=== PATIENT | female | born 1965 | race Caucasian/White ===

== ENCOUNTER 2019-03-15 13:04 | Emergency (ER) | payer MEDICAID ==
[2019-03-15] MEDS ORDERED: IPRATROPIUM/ALBUTEROL (0.5MG/3MG) NEB INH ONE (13:10)
[2019-03-15] MEDS ORDERED: METHYLPREDNISOLONE PF 125MG/VIAL IM ONE (13:10)
[2019-03-15] MEDS ORDERED: AZITHROMYCIN 500 MG TABLET PO ONE (13:14)
[2019-03-15] MEDS ORDERED: CEFTRIAXONE 1GM/50ML BAG 1 GM/50 ML BAG IVPB ONE (13:14)
--- NOTE | 2019-03-15 13:15 | Emergency Department Record ---
History of Present Illness - General Chief Complaint: Shortness of breath Stated Complaint: MONIKA Time Seen by Provider: 03/15/19 13:06 Source: Patient Mode of Arrival: Ambulatory Limitations: No limitations - History of Present Illness Initial Comments: 53 yo female presents with a cough for 4-5 days. The cough is getting worse with green sputum. She has "borderline" COPD per her doctor. She denies fevers. She does feel short of breath. No chest pain. No edema. No fever. No nausea, vomiting or diarrhea. She is a smoker. She has had pneumonia in the past as well. MD Complaint: Cough -: Days(s) (4-5) Quality: Other Improves With: Nothing Worsens With: Coughing Known History Of: COPD Context: Other Associated Symptoms: Cough, Sputum production Treatments Prior to Arrival: Bronchodilator - Related Data Home Medications Medication Instructions Recorded Confirmed Last Taken Aripiprazole [Abilify] 10 mg PO DAILY 03/15/19 03/15/19 Unknown Gabapentin [Neurontin] 1,800 mg PO TID 03/15/19 03/15/19 Unknown Venlafaxine HCl [Effexor] 75 mg PO DAILY 03/15/19 03/15/19 Unknown Previous Rx's Medication Instructions Recorded Albuterol Sulfate [Albuterol 8.5 gm IH Q4H #1 hfa.aer.ad 03/15/19 Sulfate Hfa] Azithromycin [Zithromax] 250 mg PO DAILY #4 tab 03/15/19 Benzonatate [Tessalon] 1 cap PO Q8H PRN #20 cap 03/15/19 Prednisone [Prednisone 20Mg] 20 mg PO BID #14 tab 03/15/19 Allergies Allergy/AdvReac Type Severity Reaction Status Date / Time No Known Drug Allergies Allergy Verified 03/15/19 13:14 Review of Systems Constitutional: Denies: Chills, Fever, Malaise, Weakness Eyes: Denies: Eye discharge, Eye pain, Photophobia, Vision change ENT: Reports: Congestion. Denies: Throat pain Respiratory: Reports: Cough, Dyspnea, Wheezes. Denies: Hemoptysis Cardiovascular: Denies: Chest pain, Edema, Palpitations, Syncope Endocrine: Denies: Fatigue Gastrointestinal: Denies: Abdominal pain, Diarrhea, Nausea, Vomiting Genitourinary: Denies: Dysuria, Urgency Musculoskeletal: Denies: Arthralgia, Back pain, Myalgia, Neck pain Skin: Denies: Bruising, Change in color, Rash Neurological: Denies: Headache Psychiatric: Denies: Anxiety Hematological/Lymphatic: Denies: Easy bleeding, Easy bruising Physical Exam - General General Appearance: Alert, Oriented x3, Cooperative, No acute distress, Other (Frequent cough) Limitations: No limitations - Head Head exam: Atraumatic, Normal inspection - Eye Eye exam: Normal appearance. negative: Conjunctival injection, Scleral icterus - ENT ENT exam: Normal exam, Mucous membranes moist Ear exam: Normal external inspection Nasal Exam: Normal inspection Mouth exam: Normal external inspection Teeth exam: Normal inspection Throat exam: Normal inspection - Neck Neck exam: Normal inspection, Full ROM. negative: Lymphadenopathy, Tenderness - Respiratory Respiratory exam: Decreased breath sounds, Prolonged expiratory, Rhonchi, Wheezes. negative: Normal lung sounds bilaterally - Cardiovascular Cardiovascular Exam: Regular rate, Normal rhythm, Normal heart sounds - GI/Abdominal GI/Abdominal exam: Soft. negative: Tenderness - Rectal Rectal exam: Deferred - exam: Deferred - Extremities Extremities exam: Normal inspection. negative: Pedal edema, Tenderness - Back Back exam: Denies: CVA tenderness (R), CVA tenderness (L) - Neurological Neurological exam: Alert, Oriented X3 - Psychiatric Psychiatric exam: Normal affect, Normal mood - Skin Skin exam: Dry, Intact, Normal color, Warm Course - Reevaluation(s) Reevaluation #1: 96% on room air. Cough frequently but non labored. 03/15/19 13:14 03/15/19 13:57 The labs were reviewed No significant abnormalities on the CBC or BMP The patient is subjectively much improved On examination she is still wheezing but with improved air exchange. 03/15/19 14:38 The CXR was negative for acute cardiopulmonary process He wheezing and cough have improved. After the albuterol she continues to feel improved with normal work of breathing and no conversation dyspnea. 03/15/19 14:59 HR 82, 96% still on RA. Normal work of breathing. Mild diffuse wheeze. 03/15/19 15:37 She continues to improve Minimal residual wheeze The patient will be provided an inhaler with spacer with teaching with respiratory The other prescriptions (steroid, antibiotic, tessalon) were sent to her pharmacy The patient is doing well and is comfortable with DC. DC vitals were reviewed. We discussed at length reasons to immediately return to the ED as well as close follow up. The patient will call the PCP for close follow up of this ED visit to review this visit and the tests performed Medical Decision Making - Lab Data Result diagrams: 03/15/19 13:20 03/15/19 13:20 Disposition Disposition: Discharge Clinical Impression: COPD with exacerbation, Bronchitis Disposition: Home, Self-Care Condition: (1) Good Instructions: COPD (Chronic Obstructive Pulmonary Disease) (ED) Additional Instructions: Call your doctor for the next available follow up appointment Review this ER visit and the tests performed with your family doctor Return to the ER for a recheck if worse, any new concerns or questions Take the prescriptions provided as directed Use your inhaler 2 puffs every 4 hours Prescriptions: Albuterol Sulfate [Albuterol Sulfate Hfa] 8.5 gm IH Q4H #1 hfa.aer.ad Prednisone [Prednisone 20Mg] 20 mg PO BID #14 tab Benzonatate [Tessalon] 1 cap PO Q8H PRN #20 cap PRN Reason: Cough Azithromycin [Zithromax] 250 mg PO DAILY #4 tab Forms: Patient Portal Access Time of Disposition: 15:39 Quality - Quality Measures Quality Measures: N/A - Blood Pressure Screening Does Patient Have Any of the Following: No Blood Pressure Classification: Hypertensive Reading Systolic Measurement: 147 Diastolic Measurement: 109 Screening for High Blood Pressure: < Pre-Hypertensive BP, F/U Documented > [G8950] Pre-Hypertensive Follow-up Interventions: Referral to alternative/primary care provider.
[2019-03-15] MEDS ORDERED: ONDANSETRON HCL IV 4 MG/2 ML VIAL IVP ONE (13:18)
[2019-03-15 13:35] LABS: ABSOLUTE NEUTROPHIL COUNT 9.82; BASO % 0.4 % (0-6); GRAN % 76.4 % (47-80); HEMATOCRIT 47.7 % (35.0-47.0); HEMOGLOBIN 15.5 gm/dl (11.6-16.0); LYMPH % 13.9 % (16-45); MEAN CELL VOLUME 92.8 fl (81-97); MEAN CORPUSCULAR HEMOGLOBIN 30.2 pg (27-33); MEAN CORPUSCULAR HGB CONC 32.5 g/dl (32-36); MEAN PLATELET VOLUME 9.5 fl (7.4-10.4); MONO % 8.3 % (0-9); PLATELET COUNT 354 K/uL (130-400); RED BLOOD COUNT 5.14 M/uL (3.80-5.40); RED CELL DISTRIBUTION WIDTH 13.8 % (11.5-14.5); WHITE BLOOD COUNT W/O DIFF 12.9 K/uL (4.2-12.2)
[2019-03-15 13:48] LABS: BLOOD UREA NITROGEN 8 mg/dL (6-20); CREATININE 0.7 mg/dL (0.5-0.9); EST GLOMERULAR FILTRATION RATE > 60 mL/min
[2019-03-15 13:51] LABS: GLUCOSE,RANDOM 147 mg/dL (74-109)
[2019-03-15] MEDS ORDERED: ALBUTEROL (0.5% CONCENTRATED) 2.5 MG/0.5 ML VIAL.NEB INH ONE (14:00)
[2019-03-15] MEDS ORDERED: BENZONATATE 100 MG CAPSULE PO ONE (14:00)
[2019-03-15] MEDS ORDERED: POTASSIUM CHLORIDE 20 MEQ TABLET PO ONE (14:00)
[2019-03-15] MEDS ORDERED: ALBUTEROL HFA 8 GM INHALER INH ONE (15:36)
--- NOTE | 2019-03-16 07:44 | RADIOLOGY REPORT ---
EXAM: CHEST, TWO VIEWS HISTORY: CONGESTED, PRODUCTIVE COUGH. TECHNIQUE: PA and lateral views of the chest were obtained. Comparison: None. FINDINGS: The cardiomediastinal silhouette is normal in size. The pulmonary vasculature is not congested. No focal consolidation, pleural effusion, or pneumothorax is seen. IMPRESSION: NO ACUTE CARDIOPULMONARY PROCESS. JOB NUMBER: [id number] MTDD
== END 2019-03-15 16:13 | disposition home or self-care (01) ==
LOC: ER 13:04
DX: J44.1 Chronic obstructive pulmonary disease with (acute) exacerbation (principal); J20.9 Acute bronchitis, unspecified; J44.0 Chronic obstructive pulmonary disease with (acute) lower respiratory infection; F17.210 Nicotine dependence, cigarettes, uncomplicated
CPT/HCPCS: 99284 ×2; 96372; 96365; 85025; 80048; 71046; 94640 ×3; J0696; J2930

== ENCOUNTER 2019-03-16 20:52 | Observation (INO) | payer MEDICAID ==
[2019-03-16] MEDS ORDERED: IPRATROPIUM/ALBUTEROL (0.5MG/3MG) NEB INH ONE (21:03)
[2019-03-16] MEDS ORDERED: METHYLPREDNISOLONE PF 125MG/VIAL IM ONE (21:04)
--- NOTE | 2019-03-16 21:30 | Emergency Department Record ---
History of Present Illness - General Chief Complaint: Cough Stated Complaint: BRONCHITIS -RETURN VISIT Time Seen by Provider: 03/16/19 20:59 Source: Patient Mode of Arrival: Ambulatory Limitations: No limitations - History of Present Illness Initial Comments: Pt to ED with MONIKA and cough. Seen here yesterday and dx with Bronchitis. Had CXR and labs at that time. Pt on prednisone and zithromax. Not smoking today but around smokers and a bon fire. Using inhaler "too much". No fever. Sputum was green in color yesterday but today is white per patient. "I tried to go to bed but I couldn't breath". Onset/Timin -: Days(s) - Related Data Previous Rx's Medication Instructions Recorded Albuterol Sulfate [Albuterol 8.5 gm IH Q4H #1 hfa.aer.ad 03/15/19 Sulfate Hfa] Azithromycin [Zithromax] 250 mg PO DAILY #4 tab 03/15/19 Benzonatate [Tessalon] 1 cap PO Q8H PRN #20 cap 03/15/19 Prednisone [Prednisone 20Mg] 20 mg PO BID #14 tab 03/15/19 Allergies Allergy/AdvReac Type Severity Reaction Status Date / Time No Known Drug Allergies Allergy Verified 03/16/19 21:00 Travel Screening - Travel/Exposure Within Last 30 Days Have you traveled within the last 30 days?: No - Travel Symptoms Symptom Screening: None Review of Systems Constitutional: Denies: Chills, Fever, Weakness Eyes: Denies: Eye discharge, Photophobia ENT: Denies: Congestion, Dental pain, Epistaxis Respiratory: Reports: As per HPI, Cough, Dyspnea, Wheezes Cardiovascular: Denies: Arrhythmia, Chest pain, Syncope Endocrine: Denies: Fatigue Gastrointestinal: Denies: Abdominal pain, Diarrhea, Nausea, Vomiting Genitourinary: Denies: Abnormal menses Musculoskeletal: Denies: Arthralgia Neurological: Denies: Abnormal gait, Headache, Tremors Psychiatric: Reports: Anxiety. Denies: Suicidal thoughts Hematological/Lymphatic: Denies: Anemia Past Medical History - SOCIAL HISTORY Smoking Status: Current every day smoker - RESPIRATORY Hx Respiratory Disorders: Yes Hx COPD: Yes Hx Pneumonia: Yes - CARDIOVASCULAR Hx Cardio Disorders: No - NEURO Hx Neuro Disorders: Yes Hx Neuropathy: Yes - GI Hx GI Disorders: No - Hx Genitourinary Disorders: No - ENDOCRINE Hx Endocrine Disorders: No - MUSCULOSKELETAL Hx Musculoskeletal Disorders: Yes Hx Arthritis: Yes - PSYCH Hx Psych Problems: Yes Hx Depression: Yes - HEMATOLOGY/ONCOLOGY Hx Hematology/Oncology Disorders: No Family Medical History Any Significant Family History?: No Family Hx Comment (NOT TO BE USED IN PLACE OF ITEMS BELOW): denies Physical Exam - General General Appearance: Alert, Oriented x3, Cooperative, Moderate distress Limitations: No limitations - Head Head exam: Atraumatic - Eye Eye exam: PERRL, EOMI - ENT ENT exam: Mucous membranes moist, Normal external ear exam, Normal orophraynx Nasal Exam: Normal inspection - Neck Neck exam: Normal inspection, Full ROM. negative: Lymphadenopathy - Respiratory Respiratory exam: Prolonged expiratory, Respiratory distress, Wheezes. negative: Chest wall tenderness, Rhonchi - Cardiovascular Cardiovascular Exam: Regular rate, Normal rhythm, Tachycardia Peripheral Pulses: 2+: Radial (R), Radial (L) - GI/Abdominal GI/Abdominal exam: Soft, Normal bowel sounds. negative: Tenderness - Extremities Extremities exam: Normal inspection. negative: Pedal edema, Tenderness - Back Back exam: Reports: Normal inspection - Neurological Neurological exam: Alert, Normal gait, Oriented X3 - Psychiatric Psychiatric exam: Anxious, Normal affect, Normal mood - Skin Skin exam: Normal color. negative: Cyanosis, Rash Course Vital Signs 03/16/19 03/16/19 21:00 21:15 Pulse Rate 113 H Pulse Rate [ 117 H Pulse Ox Probe] Respiratory 26 H 18 Rate Blood Pressure 130/82 [Left Arm] Pulse Ox 93 L 97 - Reevaluation(s) Reevaluation #1: 03/16/19 21:29 seen on arrival and RT present for [facility] txs. IV and solumedrol given. Improved with treatment. Resting and talking without difficulty. Reevaluation #2: 03/16/19 21:43 Pt tight with wheezing. Long talk about care and course. At this time we will admit for treatments thru the night with RT and IV meds. Medical Decision Making - Lab Data Result diagrams: 03/16/19 21:05 03/16/19 21:05 Disposition Disposition: Admit Clinical Impression: COPD with exacerbation, Failure of outpatient treatment Disposition: Still a Patient at [facility] Decision to Admit: Admit from ER Decision to Admit Date: 03/16/19 Decision to Admit Time: 21:42 Accepting Physician: Kristen Time Discussed w/Accepting Physician: 21:42 (Pro NAVARRO) Condition: (3) Guarded Time of Disposition: 21:42 Quality - Quality Measures Quality Measures: N/A - Blood Pressure Screening Does Patient Have Any of the Following: No Blood Pressure Classification: Pre-Hypertensive BP Reading Systolic Measurement: 165 Diastolic Measurement: 85 Screening for High Blood Pressure: < Pre-Hypertensive BP, F/U Documented > [G8950] Pre-Hypertensive Follow-up Interventions: Follow-up with rescreen every year.
[2019-03-16] MEDS ORDERED: ALBUTEROL SULFATE (0.083%) 2.5 MG/3 ML NEB INH ONE (21:32)
[2019-03-16 21:42] LABS: ABSOLUTE NEUTROPHIL COUNT 25.48; BASO % 0.1 % (0-6); HEMATOCRIT 44.4 % (35.0-47.0); HEMOGLOBIN 14.5 gm/dl (11.6-16.0); LYMPH % 3.8 % (16-45); MEAN CELL VOLUME 92.7 fl (81-97); MEAN CORPUSCULAR HEMOGLOBIN 30.3 pg (27-33); MEAN CORPUSCULAR HGB CONC 32.7 g/dl (32-36); MEAN PLATELET VOLUME 9.9 fl (7.4-10.4); MONO % 3.8 % (0-9); PLATELET COUNT 406 K/uL (130-400); RED BLOOD COUNT 4.79 M/uL (3.80-5.40); RED CELL DISTRIBUTION WIDTH 13.7 % (11.5-14.5)
[2019-03-16 21:55] LABS: BLOOD UREA NITROGEN 10 mg/dL (6-20); CREATININE 0.6 mg/dL (0.5-0.9); EST GLOMERULAR FILTRATION RATE > 60 mL/min
[2019-03-16] MEDS ORDERED: AL HYDROX/MAG HYDROX 30ML UD PO ONE (21:55)
[2019-03-16 21:58] LABS: GLUCOSE,RANDOM 201 mg/dL (74-109)
[2019-03-16] MEDS ORDERED: CEFTRIAXONE 1GM/50ML BAG IVPB SCH (22:00)
[2019-03-16] MEDS: CEFTRIAXONE SODIUM 1 GM in 0.9 % SODIUM CHLORIDE 100ML 100 ML IVPB SCH (23:00)
[2019-03-16] MEDS: AZITHROMYCIN 500 MG in 0.9 % SODIUM CHLORIDE 250ML 250 ML IVPB SCH (23:08)
[2019-03-16] MEDS: ACETAMINOPHEN 500 MG TABLET PO PRN (23:20)
[2019-03-16] MEDS: 0.9 % SODIUM CHLORIDE 1000ML 1,000 ML IV PRN (23:21)
[2019-03-16] MEDS: IPRATROPIUM/ALBUTEROL (0.5MG/3MG) NEB INH SCH (23:35)
[2019-03-17] MEDS: IPRATROPIUM/ALBUTEROL (0.5MG/3MG) NEB INH SCH ×5 (05:08→21:29)
[2019-03-17] MEDS: METHYLPREDNISOLONE PF 125MG/VIAL IVP SCH ×4 (05:50→21:20)
[2019-03-17 07:03] LABS: ABSOLUTE NEUTROPHIL COUNT 24.42; HEMATOCRIT 43.7 % (35.0-47.0); HEMOGLOBIN 13.9 gm/dl (11.6-16.0); LYMPH % 3.1 % (16-45); MEAN CORPUSCULAR HEMOGLOBIN 29.9 pg (27-33); MEAN CORPUSCULAR HGB CONC 31.8 g/dl (32-36); MEAN PLATELET VOLUME 9.5 fl (7.4-10.4); MONO % 3.1 % (0-9); PLATELET COUNT 385 K/uL (130-400); RED BLOOD COUNT 4.65 M/uL (3.80-5.40); RED CELL DISTRIBUTION WIDTH 13.7 % (11.5-14.5)
[2019-03-17 07:21] LABS: WHITE BLOOD COUNT W/O DIFF 26.1 K/uL (4.2-12.2)
[2019-03-17 07:23] LABS: ALB/GLOB RATIO 1.3 (1.1-1.8); ALKALINE PHOSPHATASE 126 U/L (35-104); ALT/SGPT 36 U/L (<33); AST/SGOT 46 U/L (10.0-35.0); BLOOD UREA NITROGEN 10 mg/dL (6-20); CREATININE 0.5 mg/dL (0.5-0.9); EST GLOMERULAR FILTRATION RATE > 60 mL/min; GLUCOSE,RANDOM 170 mg/dL (74-109)
--- NOTE | 2019-03-17 07:29 | RADIOLOGY REPORT ---
EXAM: CHEST, TWO VIEWS HISTORY: WORSENING DIFFICULTY BREATHING WITH WHEEZING. TECHNIQUE: PA and lateral upright views of the chest were obtained. Comparison: 03/15/19. FINDINGS: The heart, mediastinum, and pulmonary vasculature are normal. There are mild interstitial infiltrates within the mid and lower lung cardenas bilaterally, left greater than right. There is no pneumothorax or effusion. The bones appear intact. IMPRESSION: MINOR INTERSTITIAL INFILTRATES WITHIN THE MID AND LOWER LUNG CARDENAS BILATERALLY, LEFT GREATER THAN RIGHT. JOB NUMBER: [id number] MTDD
--- NOTE | 2019-03-17 08:09 | History & Physical ---
History of Present Illness - Date of Service Date of Service for History & Physical: 03/17/19 - History of Present Illness Admitting Diagnosis: 1. Acute COPD with bronchitis. 2. Failed outpatient treatment History of Present Illness: Roxi Reyes is a 53 y.o. F who presented to the [facility] ED on 03/16/19 d/t increased MONIKA and cough. She had been seen in the [facility] ED on 03/15/19 and was dx'd with COPD exacerbation and bronchitis for which she was prescribed prednisone, azithromycin and tessalon perles. She had a CXR on 03/15/19 which was neg. for an acute process and WBC 12.9. Reported that although she had not been smoking throughout the day on 03/16/19, she was at a bonfire and other smokers which increased her MONIKA, especially while lying down to sleep. Reports that she was told in an urgent care approximately 1 week ago that she "probably has COPD". She has a 40 pk/yr smoking hx. PMHx includes questionable dx of COPD, neuropathy, OA and Depression. PCP: Scottie Contreras ED Course -CXR 03/16/19: minor infiltrates L>R -WBC 28 which could be attributed to steroid use -Neutrophils 92 -AST/ALT: 46/36 -Vitals: T 97.4, HR 102, RR 20, BP 146/97, SpO2 96% 03/17/19 1030 Vitals: T 98.1, HR 77, BP 139/91, RR 16, SpO2 99% on 2L Pt lying in bed. She is arousable and ill-appearing. A&Ox3. She reports that she feels slightly better and is having an easier time breathing, however it is still difficult. Reports pain 5/10 in bases of lungs from coughing. Tylenol somewhat effective. She reports that she is ready to quit. Has tried Chantix before but it made her have terrible dreams and headaches. Pt appears unwell. Will continue IV Rocephin and Azithromycin, Duonebs q. 4 hours, Solumedrol 60mg q. 8 hours. Travel Screening - Travel/Exposure Within Last 30 Days Have you traveled within the last 30 days?: No - Travel/Exposure Within Last Year Have you traveled outside the [place] in the last year?: No - Additonal Travel Details Have you been exposed to anyone with a communicable illness?: No - Travel Symptoms Symptom Screening: None Review of Systems Reviewed: No additional complaints except as noted below Constitutional: Denies: Chills, Fever, Weakness Eyes: Denies: Eye discharge, Photophobia ENT: Denies: Congestion, Dental pain, Epistaxis Respiratory: Reports: As per HPI, Cough, Dyspnea, Wheezes Cardiovascular: Denies: Arrhythmia, Chest pain, Syncope Endocrine: Denies: Fatigue Gastrointestinal: Denies: Abdominal pain, Diarrhea, Nausea, Vomiting Genitourinary: Denies: Abnormal menses Musculoskeletal: Reports: Other (Rib pain d/t coughing). Denies: Arthralgia Neurological: Denies: Abnormal gait, Headache, Tremors Psychiatric: Reports: Anxiety. Denies: Suicidal thoughts Hematological/Lymphatic: Denies: Anemia Past Medical History - SOCIAL HISTORY Smoking Status: Current every day smoker - RESPIRATORY Hx Respiratory Disorders: Yes Hx COPD: Yes Hx Pneumonia: Yes - CARDIOVASCULAR Hx Cardio Disorders: No - NEURO Hx Neuro Disorders: Yes Hx Neuropathy: Yes - GI Hx GI Disorders: No - Hx Genitourinary Disorders: No - ENDOCRINE Hx Endocrine Disorders: No - MUSCULOSKELETAL Hx Musculoskeletal Disorders: Yes Hx Arthritis: Yes - PSYCH Hx Psych Problems: Yes Hx Depression: Yes - HEMATOLOGY/ONCOLOGY Hx Hematology/Oncology Disorders: No Family Medical History Any Significant Family History?: No Family Hx Comment (NOT TO BE USED IN PLACE OF ITEMS BELOW): denies H&P Meds/Allergies - Allergies Allergies: Allergies Allergy/AdvReac Type Severity Reaction Status Date / Time No Known Drug Allergies Allergy Verified 03/16/19 21:00 - Home Medications Previous Rx's Medication Instructions Recorded Albuterol Sulfate [Albuterol 8.5 gm IH Q4H #1 hfa.aer.ad 03/15/19 Sulfate Hfa] Azithromycin [Zithromax] 250 mg PO DAILY #4 tab 03/15/19 Benzonatate [Tessalon] 1 cap PO Q8H PRN #20 cap 03/15/19 Prednisone [Prednisone 20Mg] 20 mg PO BID #14 tab 03/15/19 - Active Medications Active Medications: Current Medications Acetaminophen (Tylenol 500mg Tab) 1,000 mg PO Q6H PRN PRN Reason: PAIN - MILD(1-4)/FEVER Last Admin: 03/16/19 23:20 Dose: 1,000 mg Documented by: Albuterol/Ipratropium (Duoneb) 3 ml INH RESP.Q4H.[facility] Last Admin: 03/17/19 05:08 Dose: 3 ml Documented by: Sodium Chloride () 1,000 mls @ 100 mls/hr IV .Q10H PRN PRN Reason: LARGE VOLUME IV Last Admin: 03/16/19 23:21 Dose: 100 mls/hr Documented by: Ceftriaxone Sodium 1 gm/ (Sodium Chloride) 100 mls @ 100 mls/hr IVPB Q24H [facility] Stop: 03/22/19 22:01 Last Admin: 03/16/19 23:00 Dose: Not Given Documented by: Azithromycin 500 mg/ Sodium (Chloride) 250 mls @ 250 mls/hr IVPB Q24H [facility] Stop: 03/22/19 10:01 Last Admin: 03/16/19 23:08 Dose: Not Given Documented by: Methylprednisolone Sodium Succinate (Solu-Medrol) 60 mg IVP Q8H [facility] Last Admin: 03/17/19 05:50 Dose: 60 mg Documented by: Physical Exam - Vital Signs Vital Signs: Vital Signs - Last 24 Hrs Temp Pulse Pulse Resp BP Pulse Ox 03/17/19 05:08 77 16 99 03/17/19 04:00 98.1 F 80 16 139/91 97 03/16/19 22:30 98.5 F 111 H 20 165/85 96 03/16/19 22:08 115 H 28 H 146/77 93 L 03/16/19 21:36 108 H 16 98 03/16/19 21:35 98.4 F 107 H 20 92 L 03/16/19 21:20 114 H 24 111/80 90 L 03/16/19 21:18 114 H 14 95 03/16/19 21:15 113 H 18 97 03/16/19 21:00 117 H 26 H 130/82 93 L - General General Appearance: Alert, Oriented x3, Cooperative, Mild distress Limitations: No limitations - Head Head exam: Atraumatic - Eye Eye exam: PERRL, EOMI - ENT ENT exam: Mucous membranes moist, Normal external ear exam, Normal orophraynx Nasal Exam: Normal inspection - Neck Neck exam: Normal inspection, Full ROM. negative: Lymphadenopathy - Respiratory Respiratory exam: Prolonged expiratory, Wheezes. negative: Chest wall tenderness, Rhonchi - Cardiovascular Cardiovascular Exam: Regular rate, Normal rhythm Peripheral Pulses: 2+: Radial (R), Radial (L) - GI/Abdominal GI/Abdominal exam: Soft, Normal bowel sounds. negative: Tenderness - Extremities Extremities exam: Normal inspection. negative: Pedal edema, Tenderness - Back Back exam: Reports: Normal inspection - Neurological Neurological exam: Alert, Normal gait, Oriented X3 - Psychiatric Psychiatric exam: Normal affect, Normal mood - Skin Skin exam: Normal color. negative: Cyanosis, Rash Results - Labs Result Diagrams: 03/17/19 06:44 03/17/19 06:44 Labs Last 24 Hours: Laboratory Results - last 24 hr 03/16/19 03/16/19 03/17/19 21:05 21:05 06:44 WBC 28.0 H* 26.1 H* RBC 4.79 4.65 Hgb 14.5 13.9 Hct 44.4 43.7 MCV 92.7 94.0 MCH 30.3 29.9 MCHC 32.7 31.8 L RDW 13.7 13.7 Plt Count 406 H 385 MPV 9.9 9.5 Neutrophils % 87.0 H Band Neutrophils % 5.0 Lymphocytes % 3.8 L 3.1 L Monocytes % 3.8 3.1 Eosinophils % 0.0 0.0 Basophils % 0.1 0.0 Absolute Neutrophils 25.48 24.42 Lymphocytes 3.0 L Monocytes 5.0 Basophils 0.0 Eosinophil Count 0.0 Sodium 137 Potassium 4.0 Chloride 100 Carbon Dioxide 22.0 Anion Gap 15.0 BUN 10 Creatinine 0.6 Estimated GFR > 60 Random Glucose 201 H Calcium 9.7 Total Bilirubin AST ALT Alkaline Phosphatase Total Protein Albumin Globulin Albumin/Globulin Ratio 03/17/19 06:44 WBC RBC Hgb Hct MCV MCH MCHC RDW Plt Count MPV Neutrophils % Band Neutrophils % Lymphocytes % Monocytes % Eosinophils % Basophils % Absolute Neutrophils Lymphocytes Monocytes Basophils Eosinophil Count Sodium 144 Potassium 4.4 Chloride 107 Carbon Dioxide 24.0 Anion Gap 13.0 BUN 10 Creatinine 0.5 Estimated GFR > 60 Random Glucose 170 H Calcium 9.4 Total Bilirubin 0.20 AST 46 H ALT 36 H Alkaline Phosphatase 126 H Total Protein 7.0 Albumin 4.0 Globulin 3.0 Albumin/Globulin Ratio 1.3 VTE H&P Assessment - Risk for VTE Risk for VTE: Yes Risk Level: Low Risk Assessment Date: 03/17/19 Risk Assessment Time: 10:30 VTE Orders Placed or Will Be Placed: Yes Plan - Detailed Diagnosis and Plan (1) COPD with exacerbation Current Visit: Yes Status: Acute Base Code: J44.1 - CHRONIC OBSTRUCTIVE PULMONARY DISEASE W (ACUTE) EXACERBATION Comment: 03/17/19 -Likely COPD d/t 40 pk/year smoking hx -03/16/19 CXR: minor infiltrates L>R -WBC: 12.9 -> 28 -> 26.1 (increase potentially r/t steroid use) -Afebrile -RT recommended Nebulizer treatments at home -Nebulizer machine ordered, will order Duonebs at d/c -Rocephin IV 1gm q. 24 hours -Azithromycin IV 500mg q. 24 hours -Duonebs q. 4 hours while awake per RT (2) Bronchitis Current Visit: No Status: Acute Base Code: J40 - BRONCHITIS, NOT SPECIFIED ACUTE OR CHRONIC Comment: 03/17/19 -Solumedrol 60mg q. 8 hours IV -Duonebs q. 4 hours while awake (3) Pain initiated by coughing Current Visit: Yes Status: Acute Base Code: R52 - PAIN, UNSPECIFIED C omment: 03/17/19 -Tylenol 1000mg q. 6 hours PRN -Motrin 600mg PO q. 8 hours PRN -Toradol 30mg IV x 1 (4) Cigarette smoker motivated to quit Current Visit: Yes Status: Acute Base Code: F17.200 - NICOTINE DEPENDENCE, UNSPECIFIED, UNCOMPLICATED Comment: 03/17/19 -No craving for tobacco currently -Discussed trial of nicotine patch at discharge (5) DVT prophylaxis Current Visit: Yes Status: Acute Base Code: Z29.9 - ENCOUNTER FOR PROPHYLACTIC MEASURES, UNSPECIFIED Comment: 03/17/19 -24 to 36 hour observation stay and pt ambulatory. Will not order DVT prophylaxis at this time -Nursing to encourage ambulation (6) Full code status Current Visit: Yes Status: Acute Base Code: Z78.9 - OTHER SPECIFIED HEALTH STATUS Comment: 03/17/19 -Full code this admission
[2019-03-17] MEDS: 0.9 % SODIUM CHLORIDE 1000ML 1,000 ML IV PRN (09:46)
[2019-03-17] MEDS: AZITHROMYCIN 500 MG in 0.9 % SODIUM CHLORIDE 250ML 250 ML IVPB SCH (10:50)
[2019-03-17] MEDS ORDERED: KETOROLAC 30 MG/ML VIAL IVP ONE (11:05)
[2019-03-17] MEDS: AZITHROMYCIN 500 MG TABLET PO SCH (16:26)
[2019-03-17] MEDS ORDERED: IBUPROFEN 600 MG TABLET PO PRN (19:00)
[2019-03-17] MEDS: ACETAMINOPHEN 500 MG TABLET PO PRN (21:20)
[2019-03-17] MEDS: CEFTRIAXONE SODIUM 1 GM in 0.9 % SODIUM CHLORIDE 100ML 100 ML IVPB SCH (21:26)
[2019-03-18] MEDS ORDERED: ALBUTEROL SULFATE (0.083%) 2.5 MG/3 ML NEB INH PRN (00:20)
[2019-03-18] MEDS: IPRATROPIUM/ALBUTEROL (0.5MG/3MG) NEB INH SCH ×2 (05:53→09:45)
[2019-03-18] MEDS: METHYLPREDNISOLONE PF 125MG/VIAL IVP SCH (06:06)
[2019-03-18 06:08] LABS: ABSOLUTE NEUTROPHIL COUNT 22.18; BASO % 0.1 % (0-6); HEMATOCRIT 42.2 % (35.0-47.0); HEMOGLOBIN 13.5 gm/dl (11.6-16.0); LYMPH % 3.5 % (16-45); MEAN CELL VOLUME 94.6 fl (81-97); MEAN CORPUSCULAR HEMOGLOBIN 30.3 pg (27-33); MEAN PLATELET VOLUME 9.4 fl (7.4-10.4); MONO % 4.4 % (0-9); PLATELET COUNT 355 K/uL (130-400); RED BLOOD COUNT 4.46 M/uL (3.80-5.40); RED CELL DISTRIBUTION WIDTH 13.6 % (11.5-14.5)
[2019-03-18] MEDS: ACETAMINOPHEN 500 MG TABLET PO PRN (06:08)
[2019-03-18 06:13] LABS: WHITE BLOOD COUNT W/O DIFF 24.1 K/uL (4.2-12.2)
[2019-03-18 06:40] LABS: ALB/GLOB RATIO 1.4 (1.1-1.8); ALBUMIN 3.7 g/dL (4.0-5.0); ALKALINE PHOSPHATASE 114 U/L (35-104); ALT/SGPT 85 U/L (<33); AST/SGOT 105 U/L (10.0-35.0); BILIRUBIN,TOTAL < 0.20 mg/dL (0.2-1.0); BLOOD UREA NITROGEN 13 mg/dL (6-20); CREATININE 0.5 mg/dL (0.5-0.9); EST GLOMERULAR FILTRATION RATE > 60 mL/min; GLUCOSE,RANDOM 155 mg/dL (74-109); TOTAL PROTEIN 6.3 g/dL (6.6-8.7)
[2019-03-18] MEDS: AZITHROMYCIN 500 MG TABLET PO SCH (10:44)
--- NOTE | 2019-03-18 10:58 | Discharge Summary ---
Providers Discharge Summary Date: 03/18/19 Date of admission: 03/16/19 22:20 Attending physician: KENNY MURRAY Primary care physician: JEANINE PEREZ Physical Exam - Vital Signs Vital Signs: Vital Signs - Last 24 Hrs Temp Pulse Pulse Resp BP Pulse Ox 03/18/19 09:51 99 H 18 99 03/18/19 08:00 98.6 F 90 16 180/91 96 03/18/19 06:15 97.6 F 79 18 173/86 95 03/18/19 05:54 94 H 18 96 03/18/19 00:21 98 H 18 96 03/17/19 21:31 97 H 16 96 03/17/19 20:00 97.3 F L 105 H 154/43 99 03/17/19 18:12 90 18 97 03/17/19 14:13 81 18 99 03/17/19 14:00 98.3 F 81 17 161/82 97 - General General Appearance: Alert, Oriented x3, Cooperative, Mild distress Limitations: No limitations - Head Head exam: Atraumatic - Eye Eye exam: PERRL, EOMI - ENT ENT exam: Mucous membranes moist, Normal external ear exam, Normal orophraynx Nasal Exam: Normal inspection - Neck Neck exam: Normal inspection, Full ROM. negative: Lymphadenopathy - Respiratory Respiratory exam: Prolonged expiratory, Wheezes. negative: Chest wall tenderness, Rhonchi - Cardiovascular Cardiovascular Exam: Regular rate, Normal rhythm Peripheral Pulses: 2+: Radial (R), Radial (L) - GI/Abdominal GI/Abdominal exam: Soft, Normal bowel sounds. negative: Tenderness - Extremities Extremities exam: Normal inspection. negative: Pedal edema, Tenderness - Back Back exam: Reports: Normal inspection - Neurological Neurological exam: Alert, Normal gait, Oriented X3 - Psychiatric Psychiatric exam: Normal affect, Normal mood - Skin Skin exam: Normal color. negative: Cyanosis, Rash Hospitalization - Hospitalization Admission Diagnosis: 1. Acute COPD with bronchitis. 2. Failed outpatient treatment - Problem List/Discharge Diagnosis (1) COPD with exacerbation Current Visit: Yes Status: Acute Base Code: J44.1 - CHRONIC OBSTRUCTIVE PULMONARY DISEASE W (ACUTE) EXACERBATION Comment: 03/18/19 -Likely COPD d/t 40 pk/year smoking hx -03/16/19 CXR: minor infiltrates L>R -WBC: 12.9 -> 28 -> 26.1 --> 24.1 (increase potentially r/t steroid use) -Duonebs TID ordered -Nebulizer machine ordered -Has completed Azithromycin 500mg x 3 doses, no antibiotic at d/c -Resume Prednisone as prescribed by ED physician on 03/15/19 -Continue with Albuterol rescue inhaler -Instructed to f/u with PCP for further COPD workup (2) Bronchitis Current Visit: Yes Status: Acute Base Code: J40 - BRONCHITIS, NOT SPECIFIED ACUTE OR CHRONIC Comment: 03/17/19 -Resume Prednisone -Duonebs TID at home (3) Pain initiated by coughing Current Visit: Yes Status: Acute Base Code: R52 - PAIN, UNSPECIFIED Comment: 03/17/19 -Improved -Tylenol 1000mg 3-4x/day -Motrin 600mg PO 3-4x/day (4) Cigarette smoker motivated to quit Current Visit: Yes Status: Acute Base Code: F17.200 - NICOTINE DEPENDENCE, UNSPECIFIED, UNCOMPLICATED Comment: 03/17/19 -No craving for tobacco currently -Will f/u with PCP for tobacco cessation medications (5) DVT prophylaxis Current Visit: Yes Status: Acute Base Code: Z29.9 - ENCOUNTER FOR PROPHYLACTIC MEASURES, UNSPECIFIED Comment: 03/18/19 -24 to 36 hour observation stay and pt ambulatory. Will not order DVT prophylaxis at this time -Nursing to encourage ambulation (6) Full code status Current Visit: Yes Status: Acute Base Code: Z78.9 - OTHER SPECIFIED HEALTH STATUS Comment: 03/18/19 -Full code this admission - Hospitalization Course Disposition: Home, Self-Care Hospital Course: Roxi Reyes is a 53 y.o. F who presented to the [facility] ED on 03/16/19 d/t increased MONIKA and cough. She had been seen in the [facility] ED on 03/15/19 and was dx'd with COPD exacerbation and bronchitis for which she was prescribed prednisone, azithromycin and tessalon perles. She had a CXR on 03/15/19 which was neg. for an acute process and WBC 12.9. Reported that although she had not been smoking throughout the day on 03/16/19, she was at a bonfire and other smokers which increased her MONIKA, especially while lying down to sleep. Reports that she was told in an urgent care approximately 1 week ago that she "probably has COPD". She has a 40 pk/yr smoking hx. PMHx includes questionable dx of COPD, neuropathy, OA and Depression. PCP: Jeronimo Contreras. ED Course -CXR 03/16/19: minor infiltrates L>R -WBC 28 which could be attributed to steroid use -Neutrophils 92 -AST/ALT: 46/36 -Vitals: T 97.4, HR 102, RR 20, BP 146/97, SpO2 96% 03/17/19 1030 Vitals: T 98.1, HR 77, BP 139/91, RR 16, SpO2 99% on 2L Pt lying in bed. She is arousable and ill-appearing. A&Ox3. She reports that she feels slightly better and is having an easier time breathing, however it is still difficult. Reports pain 5/10 in bases of lungs from coughing. Tylenol somewhat effective. She reports that she is ready to quit. Has tried Chantix before but it made her have terrible dreams and headaches. Pt appears unwell. Will continue IV Rocephin and Azithromycin, Duonebs q. 4 hours, Solumedrol 60mg q. 8 hours. 03/18/19 1100 Pt sitting up in bed. She is A&Ox3 and reports that she is "ready to go home". Denies having any pain today. Will send home with Duonebs TID, nebulizer machine and she has been instructed to continue Prednisone as prescribed by ED physician on 03/15/19 as she already has this prescription at home. Additionally, her BPs have been ranging from 111/80 to 181/90 with average in the 1402-150s/90s. Starting on Lisinopril 5mg daily with script given for #30. Pt was instructed to f/u with PCP regarding BP management. Procedures: Imaging and X-Rays 03/16/19 21:35 CHEST 2 VIEWS [RAD] Stat Cardiology Procedures 03/16/19 21:35 Fitter'S Assistant NOW Abnormal Labs: Abnormal Lab Results 03/16/19 03/16/19 03/17/19 Range/Units 21:05 21:05 06:44 WBC 28.0 H* 26.1 H* (4.2-12.2) K/uL MCHC 31.8 L (32-36) g/dl Plt Count 406 H (130-400) K/uL Neutrophils % 87.0 H 92.0 H (47-80) % Lymphocytes % 3.8 L 3.1 L (16-45) % Lymphocytes 3.0 L 5.0 L (16-45) % Chloride (98-107) mmol/L Random Glucose 201 H (74-109) mg/dL Total Bilirubin (0.2-1.0) mg/dL AST (10.0-35.0) U/L ALT (<33) U/L Alkaline Phosphatase (35-104) U/L Total Protein (6.6-8.7) g/dL Albumin (4.0-5.0) g/dL 03/17/19 03/18/19 03/18/19 Range/Units 06:44 06:00 06:00 WBC 24.1 H* (4.2-12.2) K/uL MCHC (32-36) g/dl Plt Count (130-400) K/uL Neutrophils % 91.0 H (47-80) % Lymphocytes % 3.5 L (16-45) % Lymphocytes 4.0 L (16-45) % Chloride 108 H (98-107) mmol/L Random Glucose 170 H 155 H (74-109) mg/dL Total Bilirubin < 0.20 L (0.2-1.0) mg/dL AST 46 H 105 H (10.0-35.0) U/L ALT 36 H 85 H (<33) U/L Alkaline Phosphatase 126 H 114 H (35-104) U/L Total Protein 6.3 L (6.6-8.7) g/dL Albumin 3.7 L (4.0-5.0) g/dL Condition at Discharge: (3) Guarded Discharge Medications - Discharge Medications Prescriptions: Ipratropium/Albuterol [Duoneb] 3 ml INH TID #30 ampul.neb Home Medications: Ambulatory Orders Albuterol Sulfate [Albuterol Sulfate Hfa] 8.5 gm IH Q4H #1 hfa.aer.ad 03/15/19 [Last Taken 03/16/19] Aripiprazole [Abilify] 10 mg PO DAILY 03/15/19 [Last Taken 03/16/19] Gabapentin [Neurontin] 1,800 mg PO TID 03/15/19 [Last Taken 03/16/19] Prednisone [Prednisone 20Mg] 20 mg PO BID #14 tab 03/15/19 [Last Taken 03/16/19] Venlafaxine HCl [Effexor] 75 mg PO DAILY 03/15/19 [Last Taken 03/16/19] Acetaminophen [Tylenol 500Mg Tab] 1,000 mg PO Q6H PRN tablet 03/18/19 [Last Taken Unknown] Ibuprofen [Motrin 600Mg] 600 mg PO Q8H PRN tablet 03/18/19 [Last Taken Unknown] Ipratropium/Albuterol [Duoneb] 3 ml INH TID #30 ampul.neb 03/18/19 [Last Taken Unknown] Discharge Plan - Discharge Instructions Activity at Discharge: Increase Activity as Tolerated Diet at Discharge: Regular Diet Instructions: Lisinopril (By mouth), COPD (Chronic Obstructive Pulmonary Disease) (DC), Chronic Bronchitis (DC), How Your Lungs Work (DC), Chronic Lung Disease and Infection Prevention (DC), Energy Conservation Techniques (DC), Nutrition Guidelines for People with COPD (DC) Additional Instructions: Activity: Increase Activity as Tolerated Diet: Regular Diet Consults: It is recommended that you have further work up regarding a COPD diagnosis Follow Up: Follow up with your Primary Care Provider in the next 1-2 weeks. Additional: Continue Prednisone as prescribed by ED physician on 03/15/19 Do the Duoneb nebulizer treatments three times a day for at least 10 more days Carry the Albuterol Rescue inhaler, especially when you are away from home Take Tylenol 1000mg up to 3-4 times per day for rib pain. Do not take more than 4,000mg of Tylenol per 24 hour period Alternate with Motrin (if needed) 600mg 3-4 times per day. Do not take more than 2,400mg of Motrin (Ibuprofen) in a 24 hour period Quality Measures - Quality Measures Quality Measures: Documentation of Current Medications in Medical Record, Screening for High Blood Pressure and F/U Documented - Current Medications Quality Measure: Measure #130: Documentation of Current Medications Documentation of Current Medications: <Current Medications Documented/Reviewed> [G8427] - Blood Pressure Screening Quality Measure: Screening for High Blood Pressure and Follow-Up Documented Does Patient Have Any of the Following: Active Dx of HTN Blood Pressure Classification: Hypertensive Reading Systolic Measurement: 180 Diastolic Measurement: 91 Screening for High Blood Pressure: < First Hypertensive BP, F/U Documented > [G8950] First Hypertensive Follow-up Interventions: Referral to alternative/primary care provider. - Elder Abuse Suspicion Index EASI Reference Information: Tori ABEL, Chema Jones, Cesar Kumar, Josie Carmona.Development and validation of a tool to assist physicians identification of elder abuse: The Elder Abuse Suspicion Index (EASI ). Journal of Elder Abuse and Neglect, 2008; 20 (3): 276-300.
[2019-03-18] MEDS ORDERED: LISINOPRIL 5 MG TABLET PO ONE (11:49)
== END 2019-03-18 12:15 | disposition home or self-care (01) ==
LOC: ER 20:52 → INTOOBSV 22:20 → MEDSURG 22:20
PROVIDERS: ADMIT Internal Medicine; ATTEND Internal Medicine
DX: J44.1 Chronic obstructive pulmonary disease with (acute) exacerbation (principal); J40 Bronchitis, not specified as acute or chronic; R52 Pain, unspecified; F17.200 Nicotine dependence, unspecified, uncomplicated; G62.9 Polyneuropathy, unspecified; M19.90 Unspecified osteoarthritis, unspecified site
CPT/HCPCS: 80048; 80053 ×2; 85027 ×3; 71046; 94640 ×4; 94761; G0378 ×3; J1885; J0696; 96365; 96372; 99217; 99220; 99285; J0456; J2930; J7050; J7613